=== PATIENT | female | born 1985 | race Caucasian/White ===

== ENCOUNTER 2018-05-21 09:29 | Inpatient (IN) ==
[2018-05-21 10:53] LABS: Baso % (Auto) 0.4 % (0.0-2.0); Eos % (Auto) 0.5 % (0.0-4.0); Hematocrit 37.4 % (35.0-46.0); Lymph # (Auto) 1.7 th/mm3 (1.0-4.8); Lymph % (Auto) 25.5 % (9.0-44.0); Mean Corpuscular HGB Conc 34.9 % (32.0-36.0); Mean Corpuscular Hemoglobin 34.7 pg (27.0-34.0); Mean Corpuscular Volume 99.4 fL (80.0-100.0); Mean Platelet Volume 10.4 fL (7.0-11.0); Mono # (Auto) 0.5 th/mm3 (0.0-0.9); Mono % (Auto) 7.2 % (0.0-8.0); Neut # (Auto) 4.5 th/mm3 (1.8-7.7); Neut % (Auto) 66.4 % (16.0-70.0); Platelet Count 102 th/mm3 (150-450); Red Blood Count 3.76 mil/mm3 (4.00-5.30); Red Cell Distribution Width 13.2 % (11.6-17.2); White Blood Count 6.8 th/mm3 (4.0-11.0)
[2018-05-21 11:04] LABS: Bacteria,Urine Rare /hpf; Bilirubin,Urine Negative (Negative); Clarity,Urine Hazy (Clear); Color,Urine Yellow (Yellw/Straw); Glucose,Urine (UA) Negative (Negative); Leukocyte Esterase,Urine Trace (Negative); Mucus,Urine Moderate /lpf (Occasional); Nitrite,Urine Negative (Negative); Specific Gravity,Urine 1.023 (1.002-1.035); Squamous Epithelial Cell,Urine 2 /hpf (0-5)
[2018-05-21 11:08] LABS: Amphetamine Urine With Conf Neg (Neg); Benzodiazepine Urine With Conf Neg (Neg)
[2018-05-21] MEDS ORDERED: Citric Acid/Sodium Citrate Liq 30 ML UDC PO SCH (11:15)
[2018-05-21] MEDS ORDERED: Morphine Sulfate PF Inj 5 MG/10 ML Ampul ONE (11:53)
[2018-05-21] MEDS ORDERED: Phenylephrine/NS 1000 MCG/10ML Syringe IV.PUSH ONE (12:40)
[2018-05-21] MEDS ORDERED: Oxytocin 30 Units/500ml Premix 30 UNITS/500 ML BAG ONE (13:55)
--- NOTE | 2018-05-21 14:03 | P.HPOB ---
History of Present Illness Primary Care Physician: UNKNOWN History of Present Illness: HPI: 32 year-old at 39 weeks EGA by LMP. Presents for elective . Patient denies any contractions. She denies any gush of fluids. Denies any vaginal bleeding. Patient has felt movements. Last meal yesterday at Lunch. care: Seen by Dr. Slaughter. Patient has had an uncomplicated course. No UTIs. Patient is compliant. Denies a diagnosis of Gestational diabetes and preeclampsia. labs: O positive, hemoglobin = 13 on 05/21, rubella immune, HepBsAg nonreactive, HIV negative,GC chlamydia negative, GBS negative. OB Hx: (2011, 40 weeks), Spontaneous (2013), in 2014 @ 40 weeks ( complications due to polyhydramnios, 4th degree laceration repair). 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 PMH: None FHx: Denies any defects, CF, twins. Allergies: NKDA Meds: vitamins. Social history: No tobacco, alcohol or drug abuse, , no domestic violence. ROS: Denies any CP, SOB, Ab Pain, Problems with Urination/Defecation. - Inpatient Certification I certify that the inpatient services were ordered in accordance with Medicare regulations governing the order. This includes certification that hospital inpatient services are reasonable and necessary and in the case of services not specified as inpatient-only under 42 CFR 419.22(n), that they are appropriately provided as inpatient services in accordance to with the 2-midnight benchmark under 43 CFR 412.3(e) Estimated Total Length of Stay (Days): 4 Plans for Post Hospital Care: Home Review of Systems All other systems reviewed negative except as stated in HPI PMFSH - Travel History Recent Travel in the [place] Within the Last 8 Weeks: No Recent Travel Out of the Country Within the Last 8 Weeks: No Medications and Allergies Active Medications: Active Medications Citric Acid/Sodium Citrate (Sodium Citrate/Citric Acid Liq) 30 ml PO STEAMSHIP AGENT VANDANA Stop: 05/25/18 11:14 Last Admin: 05/21/18 12:06 Dose: 30 ml Cefazolin Sodium 1,000 mg/ (Sodium Chloride) 100 mls @ 100 mls/hr IV.SIG STEAMSHIP AGENT VANDANA Stop: 09/08/18 11:59 Lactated Ringer's (Lr 1000 Ml Inj) 1,000 mls @ 150 mls/hr IV.CONT .Q6H40M VANDANA Last Admin: 05/21/18 10:20 Dose: 150 mls/hr Allergies Allergy/AdvReac Type Severity Reaction Status Date / Time NKA Allergy Unknown Uncoded 05/26/03 07:21 Exam Vital signs: Vital Signs 05/21/18 10:10 05/21/18 13:44 05/21/18 13:45 Temperature 97.7 F 97.4 F L Pulse Rate 55 L 104 H Respiratory Rate 18 18 Blood Pressure 116/74 109/56 L Intake & Output 05/20/18 05/21/18 05/21/18 18:59 06:59 18:59 Weight 70.76 kg Narrative: GENERAL: Well-nourished, well-developed patient. SKIN: Warm and dry. HEAD: Normocephalic and atraumatic. EYES: No scleral icterus. No injection or drainage. ENT: No nasal drainage noted. Mucous membranes pink. Airway patent. NECK: Supple, trachea midline. No JVD. CARDIOVASCULAR: Regular rate and rhythm grade 2 systolic murmur appreciated over the Left Sternal border. No gallops or rubs. RESPIRATORY: Breath sounds equal bilaterally. No accessory muscle use. ABDOMEN/GI: Abdomen soft, non-tender, bowel sounds present, no rebound, no guarding. Gravid to 39 weeks size FHT's: Category: 1 Baseline: 140 bpm Reactive: + Variability: moderate Decels: no EXTREMITIES: No cyanosis or edema. NEUROLOGICAL: Awake and alert. Normal speech. Results - Labs CBC & Chem 7: 05/21/18 10:20 Labs: Laboratory Results - last 24 hr 05/21/18 05/21/18 05/21/18 10:20 10:20 10:20 WBC 6.8 RBC 3.76 L Hgb 13.0 Hct 37.4 MCV 99.4 MCH 34.7 H MCHC 34.9 RDW 13.2 Plt Count 102 L MPV 10.4 Neut % (Auto) 66.4 Lymph % (Auto) 25.5 Craig % (Auto) 7.2 Eos % (Auto) 0.5 Baso % (Auto) 0.4 Neut # (Auto) 4.5 Lymph # (Auto) 1.7 Craig # (Auto) 0.5 Eos # (Auto) 0.0 Baso # (Auto) 0.0 WBC Differential . Differential Comment Auto diff final Ur Collection Type Warehouse Man Urine Color Yellow Urine Clarity Hazy H Urine pH 6.0 Ur Specific [place] 1.023 Urine Protein Negative Urine Glucose (UA) Negative Urine Ketones Negative Urine Occult Blood Negative Urine Nitrate Negative Urine Bilirubin Negative Urine Ictotest Warehouse Man Urine Urobilinogen Less than 2 Ur Leukocyte Esterase Trace H Urine RBC Less than 1 Urine WBC 8 H Urine WBC Clumps Warehouse Man Ur Squamous Epith Cells 2 Ur Transition Epith Cell Warehouse Man Ur Renal Epithelial Cell Warehouse Man Calcium Carbonate Cryst Warehouse Man Calcium Oxalate Crystal Warehouse Man Leucine Crystals Warehouse Man Cystine Crystals Warehouse Man Uric Acid Crystals Warehouse Man Triple Phos Crystals Warehouse Man Cholesterol Crystals Warehouse Man Tyrosine Crystals Warehouse Man Amorphous Sediment Warehouse Man Urine Bacteria Rare H Hyaline Casts Warehouse Man Granular Casts Warehouse Man Fine Granular Casts Warehouse Man Coarse Granular Casts Warehouse Man Waxy Casts Warehouse Man RBC Casts Warehouse Man WBC Casts Warehouse Man Urine Mucus Moderate H Urine Trichomonas Warehouse Man Urine Yeast Warehouse Man Ur Yeast w Hyphae Warehouse Man Urine Sperm Warehouse Man Ur Oval Fat Bodies Warehouse Man Micro UA Comment Culture not ind Ur Microscopic Review Warehouse Man Urine Culture Comments Culture not ind Urine Collection Time Warehouse Man Urine Comment Warehouse Man Urine Opiates Screen Ur Barbiturates Screen Ur Amphetamine Screen U Benzodiazepines Scrn Urine Cocaine Screen U Cannabinoids Screen Blood Type O Positive Blood Type Recheck Antibody Screen Negative 05/21/18 10:20 WBC RBC Hgb Hct MCV MCH MCHC RDW Plt Count MPV Neut % (Auto) Lymph % (Auto) Craig % (Auto) Eos % (Auto) Baso % (Auto) Neut # (Auto) Lymph # (Auto) Craig # (Auto) Eos # (Auto) Baso # (Auto) WBC Differential Differential Comment Ur Collection Type Urine Color Urine Clarity Urine pH Ur Specific [place] Urine Protein Urine Glucose (UA) Urine Ketones Urine Occult Blood Urine Nitrate Urine Bilirubin Urine Ictotest Urine Urobilinogen Ur Leukocyte Esterase Urine RBC Urine WBC Urine WBC Clumps Ur Squamous Epith Cells Ur Transition Epith Cell Ur Renal Epithelial Cell Calcium Carbonate Cryst Calcium Oxalate Crystal Leucine Crystals Cystine Crystals Uric Acid Crystals Triple Phos Crystals Cholesterol Crystals Tyrosine Crystals Amorphous Sediment Urine Bacteria Hyaline Casts Granular Casts Fine Granular Casts Coarse Granular Casts Waxy Casts RBC Casts WBC Casts Urine Mucus Urine Trichomonas Urine Yeast Ur Yeast w Hyphae Urine Sperm Ur Oval Fat Bodies Micro UA Comment Ur Microscopic Review Urine Culture Comments Urine Collection Time Urine Comment Urine Opiates Screen Neg Ur Barbiturates Screen Neg Ur Amphetamine Screen Neg U Benzodiazepines Scrn Neg Urine Cocaine Screen Neg U Cannabinoids Screen Neg Blood Type Blood Type Recheck Antibody Screen Caprini VTE Risk Assessment Caprini VTE Risk Assessment: No/Low Risk (score <= 1) Caprini Risk Assessment Model: Point Value = 1 Point Value = 2 Point Value = 3 Point Value = 5 Age 41-60 Minor surgery BMI > 25 kg/m2 Swollen legs Varicose veins or History of unexplained or recurrent spontaneous Oral contraceptives or hormone replacement Sepsis (< 1 month) Serious lung disease, including pneumonia (< 1 month) Abnormal pulmonary function Acute myocardial infarction Congestive heart failure (< 1 month) History of inflammatory bowel disease Medical patient at bed rest Age 61-74 Arthroscopic surgery Major open surgery (> 45 min) Laparoscopic surgery (> 45 min) Malignancy Confined to bed (> 72 hours) Immobilizing plaster cast Central venous access Age >= 75 History of VTE Family history of VTE Factor V Leiden Prothrombin [id number] Lupus anticoagulant Anticardiolipin antibodies Elevated serum homocysteine Heparin-induced thrombocytopenia Other congenital or acquired thrombophilia Stroke (< 1 month) Elective arthroplasty Hip, pelvis, or leg fracture Acute spinal cord injury (< 1 month) Prophylaxis Regimen: Total Risk Factor Score Risk Level Prophylaxis Regimen 0-1 Low Early ambulation 2 Moderate Order ONE of the following: *Sequential Compression Device (SCD) *Heparin 5000 units SQ BID 3-4 Higher Order ONE of the following medications: *Heparin 5000 units SQ TID *Enoxaparin/Lovenox 40 mg SQ daily (WT < 150 kg, CrCl > 30 mL/min) *Enoxaparin/Lovenox 30 mg SQ daily (WT < 150 kg, CrCl > 10-29 mL/min) *Enoxaparin/Lovenox 30 mg SQ BID (WT < 150 kg, CrCl > 30 mL/min) AND/OR *Sequential Compression Device (SCD) 5 or more Highest Order ONE of the following medications: *Heparin 5000 units SQ TID (Preferred with Epidurals) *Enoxaparin/Lovenox 40 mg SQ daily (WT < 150 kg, CrCl > 30 mL/min) *Enoxaparin/Lovenox 30 mg SQ daily (WT < 150 kg, CrCl > 10-29 mL/min) *Enoxaparin/Lovenox 30 mg SQ BID (WT < 150 kg, CrCl > 30 mL/min) AND *Sequential Compression Device (SCD) Assessment and Plan - Plan 37 year old at 39 weeks here for elective . -Admit to L&D -Routine antepartum/ care. -H&H/CBC ordered. -EFM/Moraida -Continue to monitor vital signs -Patient is to remain NPO.
[2018-05-21] MEDS ORDERED: Oxytocin 30 Units/500ml Premix 30 UNITS/500 ML BAG IV.SIG ONE (14:17)
[2018-05-21] MEDS ORDERED: Acetaminophen 325 MG Tablet PO PRN (14:17)
[2018-05-21] MEDS ORDERED: Senna/Docusate Sodium 8.6/50 MG Tablet PO PRN (14:17)
--- NOTE | 2018-05-21 14:30 | P.OP ---
- Preoperative Diagnosis (1) Previous section complicating (2) S/P repeat low transverse - Postoperative Diagnosis (1) Previous section complicating (2) S/P repeat low transverse Date of procedure: 05/21/18 Procedure: Repeat low transverse section Anesthesia: spinal Surgeon: Joaquín Slaughter MD Estimated blood loss (mL): 600 Pathology: none sent Operation and Findings: Findings normal male infant Apgars 9 9 and the weight was 7 lbs. 2 oz.. Normal fallopian tubes normal ovaries normal uterus. Normal cul-de-sac Complications none Counts were correct Taken to the operating room identified by name band and verbally and given a spinal anesthetic. She was prepped and draped in the usual sterile manner for a section. A time out was taken. The old incision was excised sharply and the Pfannenstiel incision was made and carried down to the fascia the fascia was nicked bilaterally and the fascia was taken off the rectus muscle by blunt and sharp dissection. The rectus muscles were spread bluntly and the peritoneum was entered under direct vision. The incision was extended with care to avoid the urinary bladder. A bladder blade was placed and a bladder flap was created in the usual fashion. The lower uterine segment was then incised sharply in a transverse manner and taken down in the midline until the uterine cavity was entered. The incision was extended with the surgeon's fingers. The vertex was grasped and with fundal pressure the vertex was delivered without difficulty hypopharynx and nasopharynx were suctioned and the remainder of the delivered without difficulty. The cord clamping was delayed 45 seconds and then the cord was clamped cut and the was handed over to the resuscitation team cord blood was obtained the placenta was removed manually and the uterus was curettaged twice with a wet lap. The uterus was delivered from the abdomen. The uterine incision was repaired with 0 Vicryl in a running fashion in 2 layers the second layer imbricating the first. The cul-de-sac and gutters were cleaned of blood and debris the uterus was delivered back into the abdomen. The rectus muscles were reapproximated with 0 Vicryl in a running the fascia was repaired with 0 Vicryl from lateral to midline bilaterally. The subcutaneous layer was repaired with a 3-0 Vicryl. The skin was repaired with a 4-0 Monocryl in a subcuticular manner. Patient tolerated the procedure well and went to recovery room in good condition.
[2018-05-21] MEDS: Ibuprofen 400 MG Tablet PO PRN (18:24)
[2018-05-21] MEDS ORDERED: Oxytocin 30 Units/500ml Premix 30 UNITS/500 ML BAG IV.SIG PRN (19:17)
[2018-05-21 20:46] VITALS: RESP 18
[2018-05-22] MEDS: Ibuprofen 400 MG Tablet PO PRN ×3 (04:33→22:35)
--- NOTE | 2018-05-22 10:48 | P.PNOB ---
Subjective Post op day: 1 Objective Vital Signs/I&O: Vital Signs 05/21/18 13:44 05/21/18 13:45 05/21/18 14:00 Temperature 97.4 F L Pulse Rate 104 H 103 H Respiratory Rate 18 20 Blood Pressure 109/56 L 106/54 L 05/21/18 14:15 05/21/18 14:30 05/21/18 14:45 Temperature Pulse Rate 99 H 88 77 Respiratory Rate 17 14 20 Blood Pressure 112/56 L 113/59 L 111/65 05/21/18 15:45 05/21/18 20:00 05/22/18 00:00 Temperature 98.1 F 98.4 F Pulse Rate 71 56 L 70 Respiratory Rate 20 18 18 Blood Pressure 108/72 101/64 105/74 05/22/18 04:00 05/22/18 08:00 Temperature 98.0 F 97.9 F Pulse Rate 59 L 51 L Respiratory Rate 18 18 Blood Pressure 92/63 L 115/73 Intake & Output 05/21/18 05/22/18 05/22/18 18:59 06:59 18:59 Weight 70.76 kg Result Diagrams: 05/21/18 10:20 Objective Remarks: GENERAL: Well-nourished, well-developed patient. CARDIOVASCULAR: Regular rate and rhythm without murmurs, gallops, or rubs. RESPIRATORY: Breath sounds equal bilaterally. No accessory muscle use. ABDOMEN/GI: Abdomen soft, non-tender, bowel sounds present. Incision: dressing, Clean, dry and intact. Fundus: Firm, non-tender at umbilicus. GENITOURINARY: Light to moderate bleeding. EXTREMITIES: No cyanosis or edema, non-tender, without signs of DVT. Medications and IVs: Active Medications Acetaminophen (Tylenol) 650 mg PO Q6H PRN PRN Reason: PAIN SCALE 1 TO 2 Diphenhydramine HCl (Benadryl Inj) 25 mg IV.PUSH Q4H PRN PRN Reason: ITCHING Diphtheria/Pertussis/Tetanus Vacc (Boostrix Vaccine Inj) 0.5 ml IM .ONCE ONE Stop: 05/22/18 16:01 Lactated Ringer's (Lr 1000 Ml Inj) 1,000 mls @ 100 mls/hr IV.CONT .Q10H VANDANA Stop: 05/22/18 15:16 Last Admin: 05/21/18 19:49 Dose: 100 mls/hr Oxytocin (Pitocin 30 Units/Ns 500 Ml Premix) 30 units in 500 mls @ 100 mls/hr IV.SIG UNSCH PRN PRN Reason: Heavy bleeding Last Admin: 05/21/18 14:40 Dose: 100 mls/hr Ibuprofen (Motrin) 800 mg PO Q8H PRN PRN Reason: cramping Last Admin: 05/22/18 04:33 Dose: 800 mg Measles/Mumps/Rubella Vaccine Live (M-M-R Ii Vaccine Inj) 0.5 ml SQ .ONCE ONE Stop: 05/22/18 16:01 Oxycodone/Acetaminophen (Percocet 5/325 Mg) 1 tab PO Q4H PRN PRN Reason: PAIN SCALE 3 TO 5 Last Admin: 05/22/18 04:34 Dose: 1 tab Oxycodone/Acetaminophen (Percocet 5/325 Mg) 2 tab PO Q4H PRN PRN Reason: PAIN SCALE 6 TO 10 Senna/Docusate Sodium (Estefania-Colace) 2 tab PO Q12H PRN PRN Reason: CONSTIPATION Sodium Chloride (Ns Flush) 2 ml IV.FLUSH BID VANDANA Last Admin: 05/22/18 06:35 Dose: Not Given Sodium Chloride (Ns Flush) 2 ml IV.FLUSH PRN PRN PRN Reason: FLUSH AFTER USING IV ACCESS Assessment and Plan - Diagnosis (1) S/P repeat low transverse Code(s): Z98.891 - History of uterine scar from previous surgery Status: Acute Plan: routine care - Plan POD #1 pt doing well taking motrin for pain, advised to take percocet if needed repeat CBC to be done today will shower today ambulating in room without any difficulty routine care Discharge Planning: dc home tomorrow
[2018-05-22 11:30] LABS: Baso % (Auto) 0.2 % (0.0-2.0); Eos % (Auto) 0.5 % (0.0-4.0); Hematocrit 32.7 % (35.0-46.0); Hemoglobin 11.3 gm/dL (11.6-15.3); Lymph # (Auto) 0.8 th/mm3 (1.0-4.8); Mean Corpuscular HGB Conc 34.7 % (32.0-36.0); Mean Corpuscular Hemoglobin 34.8 pg (27.0-34.0); Mean Corpuscular Volume 100.3 fL (80.0-100.0); Mean Platelet Volume 10.1 fL (7.0-11.0); Mono # (Auto) 0.4 th/mm3 (0.0-0.9); Mono % (Auto) 6.3 % (0.0-8.0); Neut # (Auto) 5.2 th/mm3 (1.8-7.7); Platelet Count 91 th/mm3 (150-450); Red Blood Count 3.26 mil/mm3 (4.00-5.30); Red Cell Distribution Width 13.5 % (11.6-17.2); White Blood Count 6.4 th/mm3 (4.0-11.0)
[2018-05-22 12:53] LABS: Lymphocytes 10 % (9-44); Monocytes 6 % (0-8); Platelet Morphology Normal (Normal)
[2018-05-22] MEDS ORDERED: Measles/Mumps/Rubella Vaccine Inj 0.5 ML Vial SQ ONE (16:00)
[2018-05-22] MEDS ORDERED: Diphtheria/Tetanus/Pertussis Vaccine Inj 0.5 ML Syringe IM ONE (16:00)
[2018-05-22] MEDS: Senna/Docusate Sodium 8.6/50 MG Tablet PO SCH (22:36)
[2018-05-23] MEDS: Senna/Docusate Sodium 8.6/50 MG Tablet PO SCH (08:31)
--- NOTE | 2018-05-23 09:21 | P.PNOB ---
Subjective Post op day: 2 Objective Vital Signs/I&O: Vital Signs 05/22/18 11:59 05/22/18 20:00 Temperature 98.3 F 98.0 F Pulse Rate 75 67 Respiratory Rate 18 18 Blood Pressure 106/68 114/67 Result Diagrams: 05/22/18 11:06 Objective Remarks: GENERAL: Well-nourished, well-developed patient. CARDIOVASCULAR: Regular rate and rhythm without murmurs, gallops, or rubs. RESPIRATORY: Breath sounds equal bilaterally. No accessory muscle use. ABDOMEN/GI: Abdomen soft, non-tender, bowel sounds present. Incision: Clean, dry and intact. Fundus: Firm, non-tender at umbilicus. GENITOURINARY: Light to moderate bleeding. EXTREMITIES: No cyanosis or edema, non-tender, without signs of DVT. Medications and IVs: Active Medications Acetaminophen (Tylenol) 650 mg PO Q6H PRN PRN Reason: PAIN SCALE 1 TO 2 Diphenhydramine HCl (Benadryl Inj) 25 mg IV.PUSH Q4H PRN PRN Reason: ITCHING Oxytocin (Pitocin 30 Units/Ns 500 Ml Premix) 30 units in 500 mls @ 100 mls/hr IV.SIG UNSCH PRN PRN Reason: Heavy bleeding Last Admin: 05/21/18 14:40 Dose: 100 mls/hr Ibuprofen (Motrin) 800 mg PO Q8H PRN PRN Reason: cramping Last Admin: 05/23/18 08:32 Dose: 800 mg Oxycodone/Acetaminophen (Percocet 5/325 Mg) 1 tab PO Q4H PRN PRN Reason: PAIN SCALE 3 TO 5 Last Admin: 05/23/18 08:33 Dose: 1 tab Oxycodone/Acetaminophen (Percocet 5/325 Mg) 2 tab PO Q4H PRN PRN Reason: PAIN SCALE 6 TO 10 Senna/Docusate Sodium (Estefania-Colace) 2 tab PO Q12H PRN PRN Reason: CONSTIPATION Last Admin: 05/22/18 17:55 Dose: 2 tab Senna/Docusate Sodium (Estefania-Colace) 2 tab PO Q12HR [facility] Last Admin: 05/23/18 08:31 Dose: 2 tab Sodium Chloride (Ns Flush) 2 ml IV.FLUSH BID [facility] Last Admin: 05/23/18 01:17 Dose: Not Given Sodium Chloride (Ns Flush) 2 ml IV.FLUSH PRN PRN PRN Reason: FLUSH AFTER USING IV ACCESS Assessment and Plan - Diagnosis (1) S/P repeat low transverse Code(s): Z98.891 - History of uterine scar from previous surgery Status: Acute Plan: routine care - Plan POD #2 pt doing well pain well managed with oral pain medication platelets 91 today down from 102, we will repeat cbc today bonding with infant ambulating in room without any difficulty routine care Discharge Planning: dc home today if platelets stable
[2018-05-23 09:59] VITALS: BP 119/72; PULSE 81
[2018-05-23 10:00] VITALS: TEMP 98.3
[2018-05-23 10:13] LABS: Baso % (Auto) 0.3 % (0.0-2.0); Eos % (Auto) 0.7 % (0.0-4.0); Hemoglobin 11.1 gm/dL (11.6-15.3); Lymph % (Auto) 16.9 % (9.0-44.0); Mean Corpuscular HGB Conc 34.8 % (32.0-36.0); Mean Corpuscular Hemoglobin 34.9 pg (27.0-34.0); Mean Corpuscular Volume 100.2 fL (80.0-100.0); Mean Platelet Volume 9.9 fL (7.0-11.0); Mono # (Auto) 0.4 th/mm3 (0.0-0.9); Neut # (Auto) 4.5 th/mm3 (1.8-7.7); Neut % (Auto) 75.1 % (16.0-70.0); Platelet Count 108 th/mm3 (150-450); Red Cell Distribution Width 13.2 % (11.6-17.2)
--- NOTE | 2018-05-23 15:21 | P.DS ---
Date of admission: 05/21/18 09:29 Primary care physician: UNKNOWN Attending physician on discharge: Joaquín Slaughter Anticipated date of discharge: 05/23/18 Brief History from admission: HPI: 32 year-old at 39 weeks EGA by LMP. Presents for elective . Patient denies any contractions. She denies any gush of fluids. Denies any vaginal bleeding. Patient has felt movements. Last meal yesterday at Lunch. care: Seen by Dr. Slaughter. Patient has had an uncomplicated course. No UTIs. Patient is compliant. Denies a diagnosis of Gestational diabetes and preeclampsia. labs: O positive, hemoglobin = 13 on 05/21, rubella immune, HepBsAg nonreactive, HIV negative,GC chlamydia negative, GBS negative. OB Hx: (2011, 40 weeks), Spontaneous (2013), in 2014 @ 40 weeks ( complications due to polyhydramnios, 4th degree laceration repair). 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 PMH: None FHx: Denies any defects, CF, twins. Allergies: NKDA Meds: vitamins. Social history: No tobacco, alcohol or drug abuse, , no domestic violence. ROS: Denies any CP, SOB, Ab Pain, Problems with Urination/Defecation. DS: Diagnosis - Discharge Diagnosis (1) S/P repeat low transverse Status: Acute (2) Thrombocytopenia Status: Acute Diagnosis: Secondary (will f/u as outpatient) DS: Medications - Discharge Medications Prescriptions: ibuprofen 800 mg PO Q8H PRN #30 tab PRN Reason: cramping oxycodone-acetaminophen 1 tab PO Q4H PRN #30 tab PRN Reason: Pain Scale 3 To 5 DS: Summary Hospital Course: repeat c section - Time Spent with Patient Total time spent providing and/or coordinating discharge services: Less than 30 minutes Exam Vital signs: Vital Signs 05/22/18 20:00 05/23/18 09:48 Temperature 98.0 F 98.3 F Pulse Rate 67 81 Respiratory Rate 18 18 Blood Pressure 114/67 119/72 Narrative: see post exam Results Procedures completed during hospitalization: repeat c section Labs on day of discharge: Labs from last 24 hours 05/23/18 09:48 WBC 6.0 RBC 3.20 L Hgb 11.1 L Hct 32.0 L MCV 100.2 H MCH 34.9 H MCHC 34.8 RDW 13.2 Plt Count 108 L MPV 9.9 Neut % (Auto) 75.1 H Lymph % (Auto) 16.9 [place] % (Auto) 7.0 Eos % (Auto) 0.7 Baso % (Auto) 0.3 Neut # (Auto) 4.5 Lymph # (Auto) 1.0 [place] # (Auto) 0.4 Eos # (Auto) 0.0 Baso # (Auto) 0.0 WBC Differential . Differential Comment Auto diff final Discharge Plan - Discharge Disposition Patient Disposition: 01 Discharge Home - Discharge Condition Condition: Good - Discharge Order Discharge Orders: Discharge Order (Routine); Ordered 05/23/18 Ordered By: Samantha Greene EMAIL MARKETER Clear for Discharge (Routine); Ordered 05/23/18 Ordered By: Samantha Greene - Physicians Team Primary Care Provider: UNKNOWN, Attending Provider: Joaquín Slaughter - Rxs /Orders / Referrals /Forms Prescriptions: New ibuprofen 800 mg Tablet 800 mg PO Q8H PRN (Reason: cramping) Qty: 30 RF: 0 oxycodone-acetaminophen 5-325 mg Tablet 1 tab PO Q4H PRN (Reason: Pain Scale 3 To 5) Qty: 30 RF: 0 Referrals: Joaquín Slaughter MD [Physician] - See Instructions (call to schedule appointment for 1 week) UNKNOWN, [Primary Care Provider] - See Instructions - Discharge Instructions Patient Printed Instructions: (DC) - Post Discharge Care Plan Care Plan Goals: Congratulations on your new baby! We want your recovery to be cristina and trouble free. Please Report the Following Symptoms to Your Doctor: -Temperature above 100.5 degrees -Redness of incision or excessive or foul smelling drainage -Unusual pain or calf pain -Increased vaginal bleeding -Painful or difficulty urinating -Feelings of extreme sadness or anxiety Goals to Promote Your Health * To prevent worsening of your condition and complications * To maintain your health at the optimal level Directions to Meet Your Goals Take your medications as prescribed Follow your dietary instruction Follow activity as directed Ensure plenty of rest for recovery Drink fluids for hydration Keep your appointments as scheduled Take your immunizations and boosters as scheduled If your symptoms worsen call your OB Physician, or go to an Urgent Care Center or Emergency Room Smoking is Dangerous to your health. Avoid second hand smoke Call the 24-hour crisis hotline for domestic abuse at
== END 2018-05-23 16:34 | disposition home or self-care (01) ==
LOC: H2E 09:29 → H1EA 15:02
PROVIDERS: ADMIT Obstetrics & Gynecology; ATTEND Obstetrics & Gynecology